=== PATIENT | female | born 1965 ===

== ENCOUNTER 2017-11-17 08:06 | Day surgery (SDC) | payer MEDICAID ==
[~2017-11-17 08:06] MED LIST: EPINEPHrine 1:1000 Nasal Sol(30mL) ONE; Lidocaine/Epinephrine 1% 1:100000 10 ML IJ ONE; ceFAZolin IV 1 gm in Dextrose 1 GM/50 ML BAG IVPB ONE
[2017-11-17] MEDS ORDERED: Acetaminophen-Codeine 300/30 mg Tab PO PRN (08:25)
[2017-11-17] MEDS ORDERED: Dextrose 5%/0.45% NS 1,000 ML IV SCH (08:30)
[2017-11-17] MEDS ORDERED: Propofol 10 mg/ml Inj (20 ML) ONE (08:47)
[2017-11-17] MEDS ORDERED: Midazolam 2 MG/2 ML VIAL ONE (08:48)
[2017-11-17] MEDS ORDERED: Lactated Ringer's 1,000 ML IV ONE (12:15)
[2017-11-17 12:54] VITALS: RESP 16
[2017-11-17 15:01] VITALS: BP 109/59; PULSE 91; TEMP 97.6; O2SAT 98
--- NOTE | 2017-11-17 22:46 | OP ---
PROCEDURE DATE: 11/17/2017 PREOPERATIVE DIAGNOSES: Sinusitis, deviated septum, enlarged turbinates. POSTOPERATIVE DIAGNOSES: Sinusitis, deviated septum, enlarged turbinates. PROCEDURES: Endoscopic bilateral maxillary antrostomy, endoscopic bilateral ethmoidectomy, endoscopic bilateral inferior turbinate reduction, septoplasty. DESCRIPTION OF PROCEDURE: The patient was brought into room, placed in supine position. Anesthesia was initiated through an ET tube. The patient was draped in the usual manner. Adrenaline-soaked pledgets were inserted into nasal cavity, remained there for five minutes and then removed. The septum was injected with lidocaine with epinephrine on both sides. A [place] incision was made on the left, and mucoperichondrial flap was raised. A vertical incision was made in the cartilage leaving 1.5 cm anterior and superior strut, and mucoperichondrial flap was raised on the other side. Deviated portion of the bone and cartilage were removed using chisel and forceps, and a quilting suture was used to suture the two flaps together. Next, 0-degree scope was inserted into nasal cavity. The inferior turbinates were noted to be enlarged and reduced in size, going from inferior to superior, anterior to posterior direction on both sides, first on the right then on the left. Bleeding was controlled using suction cautery on both sides. Next, attention was turned to the left. The middle turbinate was injected lidocaine with epinephrine and medialized. The uncinate process was medialized using a [place] elevator and removed using forceps. A debrider was used to enter the ethmoid bulla inferomedially, going posteriorly to the basal lamella then anteriorly and superiorly until the ethmoid bulla was removed. The basal lamella was entered. Posterior ethmoid cells were entered and opened. The skull base was identified and followed anteriorly all the way to the area of the anterior ethmoid air cells. Next, a curved suction was used to locate the maxillary antrum which was noted to be stenosed and opened using forceps. Attention was turned to the maxillary antrum which was opened and contents were suctioned out. Bleeding was controlled using adrenaline-soaked pledgets and suction cautery. Attention was turned to the right. The middle turbinate was injected with lidocaine with epinephrine and medialized. The uncinate process was medialized using a [place] elevator and removed using forceps. A debrider was used to enter the ethmoid bulla inferomedially, going posteriorly to the basal lamella, anteriorly and superiorly until the ethmoid bulla was removed. Basal lamella was entered. Posterior ethmoid cells were entered and opened. Skull base was identified and followed anteriorly all the way to the area of the anterior ethmoid air cells. A curved suction was used to locate the maxillary antrum which was noted to be stenosed and opened using forceps. Bleeding was controlled using adrenaline-soaked pledgets and suction cautery. Stents were placed. Splints were placed. The patient was taken off anesthesia and taken to recovery room in stable manner. Von Long MD MTDD
== END 2017-11-17 14:45 | disposition home or self-care (01) ==
LOC: C.SDS 08:06
PROVIDERS: ATTEND Otolaryngology
DX: J34.2 Deviated nasal septum (principal); J34.3 Hypertrophy of nasal turbinates; J32.0 Chronic maxillary sinusitis
CPT/HCPCS: 30520; 30802; 31255; 31256; 88304; J0690; J2250; J2405; J2704; J2765; J3010; J7120